=== PATIENT | female | born 1990 | race Caucasian/White ===

== ENCOUNTER 2017-07-03 10:36 | Observation (INO) | payer OTHER ==
[2017-07-03] MEDS ORDERED: BABY ASPIRIN 81 MG CHEW PO ONE (11:07)
[2017-07-03] MEDS ORDERED: Nitrostat 0.4 MG (ED) SL ONE ×2 (11:07→11:23)
--- NOTE | 2017-07-03 11:20 | ERPHSYRPT ---
- History of Present Illness Time Seen by Provider: 07/03/17 10:50 Historian: patient Exam Limitations: clinical condition Patient Subjective Stated Complaint: left arm numbness and pain since 0730 today. Triage Nursing Assessment: ambulated to room per self, skin w/d, color normal, resp easy. on monitor, sinus rhythm without ectopy. recently dx with mvp and put on metoprolol Physician History: PATIENT WITH A HISTORY OF MITRAL VALVE PROLAPSE COMPLAINS OF INTERMITTENT SHARP CHEST PAINS X 3 DAYS, EXACERBATED UPON INSPIRATION, ONSET OF LEFT ARM NUMBNESS, ACHING PAIN DISCOMFORT RADIATING FROM ELBOW TO SHOULDER, CONSTANT SINCE ONSET 0730 THIS MORNING. DENIES DIAPHORESIS, PALPITATIONS, OR DYSPNEA. ALSO FELT HOT AND DIZZINESS WITH NEAR SYNCOPE EPISODE. Timing/Duration: day(s), worse Activities at Onset: activity Quality: sharpness (IN CHEST, ACHING NUMBNSS IN SHOULDER) Severity of Pain-Max: moderate Severity of Pain-Current: moderate Associated Symptoms: other (NEAR SYNCOPE) Prior Chest Pain/Cardiac Workup: no prior chest pain Nitro Today/Relief: no nitro taken today, 0.4 mg x 2, provided by ED Aspirin Treatment Today: 81 mg x 2, 81 mg x 4, provided by ED Allergies/Adverse Reactions: No Known Drug Allergies Allergy (Verified 07/03/17 10:50) Home Medications: Metoprolol Succinate 25 mg Xl* [Toprol-Xl 25MG Tablets] 25 mg PO DAILY [History] Multivit with Calcium,Iron,Min [Womens Multiple Vitamins] 1 each PO DAILY [History] Hx Tetanus, Diphtheria Vaccination/Date Given: No Hx Influenza Vaccination/Date Given: No Hx Pneumococcal Vaccination/Date Given: No - Review of Systems Constitutional: No Fever, No Chills Eyes: No Symptoms Ears, Nose, & Throat: No Symptoms Respiratory: No Symptoms, No Cough, No Dyspnea Cardiac: Chest Pain, Other (LEFT ARM PAIN), No Edema, No Syncope Abdominal/Gastrointestinal: No Symptoms, No Abdominal Pain, No Nausea, No Vomiting, No Diarrhea Genitourinary Symptoms: No Symptoms, No Dysuria Musculoskeletal: No Symptoms, No Back Pain, No Neck Pain Skin: No Rash Neurological: No Dizziness, No Focal Weakness, No Sensory Changes Psychological: No Symptoms Endocrine: No Symptoms All Other Systems: Reviewed and Negative - Past Medical History Pertinent Past Medical History: Yes Cardiac History: Other Other Medical History: mvp - Past Surgical History Past Surgical History: Yes Female Surgical History: Section Other Surgical History: X 2 - Social History Smoking Status: Current every day smoker Exposure to second hand smoke: Yes Drug Use: none Patient Lives Alone: No - Female History Hx Last Menstrual Period: 05/30/17 Hx Now: No - Nursing Vital Signs Nursing Vital Signs: Initial Vital Signs Temperature 97.4 F 07/03/17 10:43 Pulse Rate 81 07/03/17 10:43 Respiratory Rate 16 07/03/17 10:43 Blood Pressure 138/80 07/03/17 10:43 O2 Sat by Pulse Oximetry 100 07/03/17 10:43 Pain Scale Pain Intensity 0 - Physical Exam SpO2: 100 Oxygen Delivery: Room Air - Course EKG Interpreted by Me: RATE, Sinus Rhythm, NORMAL AXIS - Radiology Exams Chest X-ray Interpretation: Interpreted by me, Negative Ordered Tests: Active Orders 24 hr Category Date Time Status Bedrest ROUTINE Activity 07/03/17 13:01 Ordered Up With Assistance ROUTINE Activity 07/03/17 13:03 Ordered Admission/Status Order ROUTINE Care 07/03/17 13:01 Ordered Call Admit Doctor for Orders ROUTINE Care 07/03/17 13:01 Ordered Code Status Order ROUTINE Care 07/03/17 13:01 Ordered EKG-ER Only STAT Care 07/03/17 11:07 Active IV Care Q6H Care 07/03/17 13:01 Ordered IV Insertion STAT Care 07/03/17 11:08 Active Implement Chest Pain Pathway ROUTINE Care 07/03/17 13:01 Ordered Oxygen-ED Only NASAL CANNULA 2 lpm Care 07/03/17 11:07 Active Kobe Del Valle ROUTINE Care 07/03/17 13:01 Ordered Telemetry ROUTINE Care 07/03/17 13:01 Ordered Vital Signs Q4H Care 07/03/17 13:01 Ordered Weight,Daily 0600 Care 07/03/17 13:01 Ordered Regular Diet Diet 07/03/17 Dinner Ordered CHEST 1 VIEW (PORTABLE) Stat Exams 07/03/17 11:12 Taken CBC W DIFF Stat Lab 07/03/17 11:25 Completed CMP Stat Lab 07/03/17 11:25 Completed D-DIMER QUANTITATION Stat Lab 07/03/17 11:25 Completed LIPID PROFILE AM.LAB Lab 07/04/17 04:00 Ordered MAGNESIUM Stat Lab 07/03/17 11:25 Completed PROTIME WITH INR Stat Lab 07/03/17 11:25 Completed TROPONIN Q3H Lab 07/03/17 11:25 Completed TROPONIN Q3H Lab 07/03/17 14:15 Ordered TROPONIN Q3H Lab 07/03/17 17:15 Ordered TROPONIN Q3H Lab 07/03/17 20:15 Ordered TROPONIN Q3H Lab 07/03/17 23:15 Ordered EKG Q8HX2,QAMX3,PRN RT 07/03/17 13:01 Ordered Pulse Oximetry Q4H RT 07/03/17 13:01 Ordered Transfer Order Routine Transfer 07/03/17 Ordered Medication Summary Generic Name Dose Route Start Last Admin Trade Name Freq PRN Reason Stop Dose Admin Sodium Chloride 1,000 mls @ 100 mls/hr 07/03/17 11:15 07/03/17 11:25 Sodium Chloride 0.9% 1000 Ml IV 08/02/17 11:14 100 mls/hr .Q10H [facility] Administration Discontinued Medications Generic Name Dose Route Start Last Admin Trade Name Freq PRN Reason Stop Dose Admin Aspirin 324 mg 07/03/17 11:07 07/03/17 11:25 Baby Aspirin 81 Mg Chew PO 07/03/17 11:08 324 mg STAT ONE Administration Aspirin Confirm 07/03/17 11:23 Baby Aspirin 81 Mg Chew Administered 07/03/17 11:24 Dose 324 mg .ROUTE .STK-MED ONE Nitroglycerin 0.4 mg 07/03/17 11:07 07/03/17 11:25 Nitrostat 0.4 Mg (Ed) SL 07/03/17 11:08 0.4 mg STAT ONE Administration Nitroglycerin Confirm 07/03/17 11:23 Nitrostat 0.4 Mg (Ed) Administered 07/03/17 11:24 Dose 0.4 mg SL .STK-MED ONE Nitroglycerin 1 gm 07/03/17 12:17 07/03/17 12:27 Nitro-Bid 2% Ud Packets TOP 07/03/17 12:18 1 gm STAT ONE Administration Nitroglycerin Confirm 07/03/17 12:26 Nitro-Bid 2% Ud Packets Administered 07/03/17 12:27 Dose 1 gm .ROUTE .STK-MED ONE Lab/Rad Data: Laboratory Result Diagrams 07/03/17 11:25 07/03/17 11:25 Laboratory Results 07/03/17 07/03/17 07/03/17 Range/Units 11:25 11:25 11:25 WBC (4.0-10.5) K/mm3 RBC (4.1-5.4) M/mm3 Hgb (12.0-16.0) gm/dl Hct (35-47) % MCV (78-100) fl MCH (26-32) pg MCHC (32-36) g/dl RDW (11.5-14.0) % Plt Count (150-450) K/mm3 MPV (6-9.5) fl Gran % (36.0-66.0) % Lymphocytes % (24.0-44.0) % Monocytes % (0.0-12.0) % Eosinophils % (0.00-5.0) % Basophils % (0.0-0.4) % Basophils # (0-0.4) INR 1.06 (0.8-3.0) D-Dimer 353 (0-500) ng/mL Sodium 142 (136-145) mEq/L Potassium 3.8 (3.5-5.1) mEq/L Chloride 107 (98-107) mEq/L Carbon Dioxide 26.2 (21-32) mEq/L Anion Gap 13.0 (5-15) MEQ/L BUN 9 (9-20) mg/dL Creatinine 0.84 (0.55-1.30) mg/dl Estimated GFR > 60 ML/MIN Glucose 89 (70-110) MG/DL Calcium 8.9 (8.5-10.1) mg/dL Magnesium 1.9 (1.8-2.4) mg/dL Total Bilirubin 1.60 H (0.2-1.0) mg/dL AST 22 (15-37) U/L ALT 18 (12-78) U/L Alkaline Phosphatase 54 (46-116) U/L Troponin I < 0.017 (0.000-0.056) ng/ml Serum Total Protein 7.7 (6.4-8.2) gm/dL Albumin 4.3 (3.4-5.0) g/dL 07/03/17 Range/Units 11:25 WBC 5.0 (4.0-10.5) K/mm3 RBC 3.97 L (4.1-5.4) M/mm3 Hgb 12.6 (12.0-16.0) gm/dl Hct 37.0 (35-47) % MCV 93.2 (78-100) fl MCH 31.7 (26-32) pg MCHC 34.1 (32-36) g/dl RDW 12.4 (11.5-14.0) % Plt Count 247 (150-450) K/mm3 MPV 10.6 H (6-9.5) fl Gran % 56.7 (36.0-66.0) % Lymphocytes % 34.9 (24.0-44.0) % Monocytes % 7.4 (0.0-12.0) % Eosinophils % 0.8 (0.00-5.0) % Basophils % 0.2 (0.0-0.4) % Basophils # 0.01 (0-0.4) INR (0.8-3.0) D-Dimer (0-500) ng/mL Sodium (136-145) mEq/L Potassium (3.5-5.1) mEq/L Chloride (98-107) mEq/L Carbon Dioxide (21-32) mEq/L Anion Gap (5-15) MEQ/L BUN (9-20) mg/dL Creatinine (0.55-1.30) mg/dl Estimated GFR ML/MIN Glucose (70-110) MG/DL Calcium (8.5-10.1) mg/dL Magnesium (1.8-2.4) mg/dL Total Bilirubin (0.2-1.0) mg/dL AST (15-37) U/L ALT (12-78) U/L Alkaline Phosphatase (46-116) U/L Troponin I (0.000-0.056) ng/ml Serum Total Protein (6.4-8.2) gm/dL Albumin (3.4-5.0) g/dL - Progress Progress: improved Progress Note: 07/03/17 12:57 CHEST PAIN RESOLVED AFTER NITROGLYCERIN 0.4MG SL, NITROPASTE 1" APPLIED TO ANTERIOR CHEST WALL Discussed with Dr.: Sauceda (DISCUSSED WITH DR SAUCEDA AT 1250 FOR OBSERVATION) - Departure Time of Disposition: 13:10 Departure Disposition: Observation Clinical Impression: ATYPICAL CHEST PAIN Condition: Stable Critical Care Time: No Referrals: JARED VARGAS [Primary Care Provider] -
[2017-07-03] MEDS ORDERED: BABY ASPIRIN 81 MG CHEW ONE (11:23)
[2017-07-03] MEDS: Sodium Chloride 0.9% 1000 ML 1,000 ML IV SCH ×2 (11:25→22:04)
[2017-07-03 11:39] LABS: BASOPHIL % 0.2 % (0.0-0.4); Eosinophil % 0.8 % (0.00-5.0); Granulocytes % 56.7 % (36.0-66.0); Lymphocytes % 34.9 % (24.0-44.0); Mean Cell Volume 93.2 fl (78-100); Mean Corpuscular Hemoglobin 31.7 pg (26-32); Mean Platelet Volume 10.6 fl (6-9.5); Monocytes % 7.4 % (0.0-12.0); Platelet Count 247 K/mm3 (150-450); Red Blood Count 3.97 M/mm3 (4.1-5.4); Red Cell Distribution Width 12.4 % (11.5-14.0)
[2017-07-03 11:54] LABS: ALBUMIN 4.3 g/dL (3.4-5.0); ALKALINE PHOSPHATASE 54 U/L (46-116); BLOOD UREA NITROGEN 9 mg/dL (9-20); CHLORIDE 107 mEq/L (98-107); Carbon Dioxide 26.2 mEq/L (21-32); Glucose 89 MG/DL (70-110); MAGNESIUM 1.9 mg/dL (1.8-2.4); Potassium 3.8 mEq/L (3.5-5.1); SGOT/AST 22 U/L (15-37); SODIUM 142 mEq/L (136-145); Total Protein 7.7 gm/dL (6.4-8.2)
[2017-07-03 11:55] LABS: INR 1.06 (0.8-3.0); PROTIME 11.8 SECONDS (9.95-12.35)
[2017-07-03 12:02] LABS: SGPT/ALT 18 U/L (12-78)
[2017-07-03] MEDS ORDERED: NITRO-BID 2% UD PACKETS TOP ONE (12:17)
[2017-07-03] MEDS ORDERED: NITRO-BID 2% UD PACKETS ONE (12:26)
[2017-07-03] MEDS ORDERED: Nitrostat 0.4 MG Tablet SL PRN (13:01)
[2017-07-03] MEDS ORDERED: MILK OF MAGNESIA 30 ML PO PRN (13:01)
[2017-07-03] MEDS ORDERED: Senokot-S Tablet PO PRN (13:01)
[2017-07-03] MEDS ORDERED: Zofran 4 MG/2 ML VIAL IV PRN (13:01)
[2017-07-03] MEDS ORDERED: MAALOX ES 30 ML UNIT DOSE PO PRN (13:01)
[2017-07-03] MEDS ORDERED: MORPHINE SULFATE 4 MG INJ IV PRN (13:05)
[2017-07-03] MEDS: NITRO-BID 2% UD PACKETS TOP SCH ×2 (14:48→21:27)
[2017-07-03] MEDS: TYLENOL 325 MG PO PRN (14:48)
--- NOTE | 2017-07-03 20:34 | XRAY ---
Indication: Chest pain. Comparison: None Portable chest demonstrates normal heart, lungs, and bony thorax with a few incidental calcified granulomas.
[2017-07-03] MEDS ORDERED: Ambien 10 MG PO PRN (22:44)
[2017-07-04 04:32] VITALS: O2SAT 97
[2017-07-04] MEDS: NITRO-BID 2% UD PACKETS TOP SCH (06:25)
[2017-07-04] MEDS: TYLENOL 325 MG PO PRN (06:40)
[2017-07-04] MEDS ORDERED: THERAGRAN MULTIVITAMIN PO SCH (10:00)
[2017-07-04] MEDS ORDERED: NON-FORMULARY ITEM (Multivit With Calcium,Iron,Min [Womens Multiple Vitamins] 1 EACH) PO SCH (10:00)
[2017-07-04] MEDS ORDERED: Ecotrin 325 MG PO SCH (10:00)
[2017-07-04] MEDS ORDERED: Lopressor 25MG Tab PO SCH (10:00)
[2017-07-04] MEDS ORDERED: Toprol-Xl 25MG Tablets PO SCH (10:00)
[2017-07-04] MEDS ORDERED: FLUCELVAX QUAD 2017-2018 SYR IM ONE (10:00)
[2017-07-04] MEDS: Sodium Chloride 0.9% 1000 ML 1,000 ML IV SCH (10:41)
--- NOTE | 2017-07-04 10:47 | HP ---
HISTORY OF PRESENT ILLNESS: This is a 27 year-old patient with history of mitral valve prolapse who presented to the emergency department complaining of sharp sternal chest pain and left arm numbness from her elbow to her shoulder. She also felt like she was going to pass out and have sweating. This started when she was at work at [employer] at approximately 0730 in the morning. She first started feeling hot and lightheaded. She came to the emergency room at approximately 10 a.m. They gave her Nitro and then Nitro paste that helped in the emergency room. Although she has had a little bit of a headache she also had some nausea. She has only been able to eat a little bit since she has been here. She reports that the chest pain is a sharp pain that feels like a tightness and just lasts seconds. This morning she had some pain below her sternal area. She also had chest pain a couple of days before this but without any arm pain. She has not had any arm pain today. The patient denied any falls, any musculoskeletal strains of her arms or any new activities. REVIEW OF SYSTEMS: She denies fever. She had a little bit of cough. No rhinorrhea. She had the nausea. No abdominal pain. Her period is late. She had weakness in her left hand and reports that she dropped cookies at work. She is right-handed. PAST SURGICAL HISTORY: Three sections with tubal ligation. Tonsils and adenoids removed. MEDICATIONS: Metoprolol tartrate 25 mg daily, multivitamin daily. ALLERGIES: NKDA. SOCIAL HISTORY: She denies tobacco use, occasionally drinks alcohol. She lives with her three children and and works at [employer]. FAMILY HISTORY: Her mother is living and has hypertension and anxiety. Her father is living and is healthy. PHYSICAL EXAMINATION: VITAL SIGNS: Temperature current 97.9F, temperature max 98.0F, heart rate 67 to 76, respiratory rate 14 to 20, blood pressure 108 to 138 over 55 to 80 currently 110/69. Oxygen saturation 95 to 97% on room air. GENERAL: The patient is pleasant, talkative lady lying in bed in no acute distress. CVS: She has a regular rate and rhythm. No murmurs, gallops or rubs are appreciated. CHEST: Clear to auscultation bilaterally. No crackles or wheezes. ABDOMEN: Soft, nontender, nondistended with normal bowel sounds. EXTREMITIES: No clubbing, cyanosis or edema. SKIN: Warm, dry and intact. LABORATORY DATA AND TESTS: CBC within normal limits. CMP revealed bilirubin 1.6. Serial troponins have been negative. Fasting lipid panel is normal. Chest x-ray was reported as normal EKG and normal sinus rhythm with no ST or T wave changes. ASSESSMENT AND PLAN: 1) CHEST PAIN: She has been ruled out for acute myocardial infarction but does continue to have some pain. Will ask for a telemedicine cardiology consult with Dr. Fernández or the covering doctor. Will continue with her metoprolol for the mitral valve prolapse. 2) LEFT ARM NUMBNESS: This has resolved. Etiology is uncertain.
[2017-07-04 11:58] VITALS: BP 116/64; PULSE 67
== END 2017-07-04 16:15 | disposition home or self-care (01) ==
LOC: ED 10:36 → MED SURG 13:30
PROVIDERS: ADMIT Family Medicine; ATTEND Internal Medicine
DX: R07.9 Chest pain, unspecified (principal); I34.1 Nonrheumatic mitral (valve) prolapse; R20.0 Anesthesia of skin
CPT/HCPCS: 36000; 36415; 71010; 80053; 80061; 83721; 83735; 84484; 84703; 85025; 85379; 85610; 93005; 93268; 96360; 96361; 99285; G0008; G0378; Q3014; 90682; A9270-GY